=== PATIENT | female | born 1975 | race Caucasian/White ===

== ENCOUNTER 2016-08-13 08:19 | Emergency (ER) | payer BC ==
[~2016-08-13] VITALS: Ht 157.5 cm; Wt 65.7 kg
[~2016-08-13 08:19] MED LIST: ADAPALENE45 GM TP; CLARINEX5 MG PO; DAILY VALUE1 EACH PO; FLONASE ALLERG9.9 ML BOTH NARES; MAG-TAB SR84 MG PO; PROAIR HFA8.5 GM IH; ZYRTEC10 M3 PO
[2016-08-13 09:12] LABS: ADD MIUA? YES; BILIRUBIN NEGATIVE; BLOOD SMALL; COLOR STRAW ((YELLOW)); GLUCOSE (STRIP) NEGATIVE; KETONES NEGATIVE; LEUKOCYTES NEGATIVE; NITRITE NEGATIVE; PROTEIN (STRIP) NEGATIVE; SPECIFIC GRAVITY 1.005 (1.000-1.030); UROBILINOGEN 0.2 MG/DL (0.2-1.0)
[2016-08-13 09:17] LABS: BACTERIA NONE SEEN /HPF; EPITHELIAL CELLS 1+ /HPF; MUCUS TRACE /LPF; RED BLOOD CELLS 0-5 /HPF (0-5); UCUL ADDED? NO; WHITE BLOOD CELLS 0-5 /HPF (0-5)
[2016-08-13 09:26] LABS: HEMATOCRIT 44.5 % (36.0-46.0); MCH 30.7 PG (29.0-34.0); MCHC 33.3 G/DL (30.0-36.0); MCV 92.3 FL (83-99); MEAN PLAT.VOLUME 10.4 uM^3 (9.5-12.4); PLATELET COUNT 347 K/uL (156-360); RBC DIS.WIDTH-CV 13.2 % (11.8-14.6); RBC DIS.WIDTH-SD 45.2 % (39-53); RED BLOOD COUNT 4.82 M/uL (3.80-5.20); WHITE BLOOD COUNT 6.9 K/uL (4.1-10.2)
[2016-08-13 09:35] LABS: CHLORIDE 110 mEq/L (99-109); POTASSIUM 4.2 mEq/L (3.7-5.4); SODIUM 141 mEq/L (136-147)
[2016-08-13 09:36] LABS: GLUCOSE 85 mg/dL (70-99)
[2016-08-13 09:38] LABS: ANION GAP 11 MEQ/L (2-14)
[2016-08-13 09:40] LABS: GFR ESTIMATE (CALCULATED) > 59 mL/min/
[2016-08-13 09:41] LABS: UREA NITROGEN (BUN) 13 mg/dL (9-23)
[2016-08-13 10:00] LABS: QUANTITATIVE HCG < 4.0 MIU/ML
[2016-08-13] MEDS ORDERED: MECLIZINE HCL25 MG PO (10:32)
[2016-08-13 10:49] VITALS: BP 120/81
== END 2016-08-13 10:55 | disposition home or self-care (01) ==
LOC: EME 08:19
DX: R42 Dizziness and giddiness (principal); H53.8 Other visual disturbances; F17.200 Nicotine dependence, unspecified, uncomplicated
CPT/HCPCS: 70450; 71020; 80048; 81003; 84702; 85027; 93005; 99281; 99284

== ENCOUNTER 2016-10-11 05:36 | Day surgery (SDC) | payer BC ==
[~2016-10-11] VITALS: Ht 157.5 cm; Wt 54.4 kg
[~2016-10-11 05:36] MED LIST changes: +CHANTIX1 MG PO; +KLONOPIN1 MG PO; +MECLIZINE HCL25 MG PO; +OMEPRAZOLE40 M1 PO
[2016-10-11] MEDS ORDERED: COLACE100 MG PO (05:53)
[2016-10-11 06:28] VITALS: BP 121/82
[2016-10-11] MEDS ORDERED: IBUPROFEN800 MG PO (09:37)
[2016-10-11] MEDS ORDERED: ENDOCET 5-3251 EACH PO (09:37)
[2016-10-11 10:56] VITALS: BP 120/94
[2016-10-11 11:57] VITALS: BP 125/74
[2016-10-11 14:08] VITALS: BP 134/80
== END 2016-10-11 14:25 | disposition home or self-care (01) ==
LOC: SDC 05:36
DX: R10.2 Pelvic and perineal pain (principal); N80.0 Endometriosis of uterus; N80.2 Endometriosis of fallopian tube; N72 Inflammatory disease of cervix uteri; Z83.3 Family history of diabetes mellitus; Z87.891 Personal history of nicotine dependence
CPT/HCPCS: 88307; J0131; J1100; J1170; J1580; J1885; J2001; J2175; J2250; J2405; J2710; J2795; J3010; J3475; J7050

== ENCOUNTER 2017-04-29 15:02 | Emergency (ER) | payer BC ==
[~2017-04-29] VITALS: Ht 157.5 cm; Wt 65.0 kg
[~2017-04-29 15:02] MED LIST changes: +COLACE100 MG PO; +ENDOCET 5-3251 EACH PO; +IBUPROFEN800 MG PO
[2017-04-29 15:47] LABS: BASOPHIL (%) 0.7 % (0-1); BASOPHIL COUNT 0.1 K/uL (0-0.1); EOSINOPHIL (%) 1.6 % (0-5); EOSINOPHIL COUNT 0.1 K/uL (0-0.3); HEMATOCRIT 37.9 % (36.0-46.0); HEMOGLOBIN 13.2 G/DL (11.9-15.5); IMMATURE GRANULOCYTE (%) 0.4 % (0.0-0.7); LYMPHOCYTE (%) 37.1 % (15-42); LYMPHOCYTE COUNT 2.9 K/uL (1.0-2.8); MCHC 34.8 G/DL (30.0-36.0); MONOCYTE (%) 7.5 % (3-12); MONOCYTE COUNT 0.6 K/uL (0-0.8); NEUTROPHIL (%) 52.7 % (45-76); NEUTROPHIL COUNT 4.1 K/uL (1.8-6.4); PLATELET COUNT 351 K/uL (156-360); RBC DIS.WIDTH-CV 12.1 % (11.8-14.6); RBC DIS.WIDTH-SD 39.6 % (39-53); RED BLOOD COUNT 4.26 M/uL (3.80-5.20); WHITE BLOOD COUNT 7.7 K/uL (4.1-10.2)
[2017-04-29 15:54] LABS: D-DIMER ELISA < 150.00 ng/mLDDU (<230)
[2017-04-29 15:55] LABS: ALBUMIN 4.2 g/dL (3.2-4.8); CHLORIDE 107 mEq/L (99-109); POTASSIUM 3.6 mEq/L (3.7-5.4); SODIUM 140 mEq/L (136-147)
[2017-04-29 15:56] LABS: MAGNESIUM 2.2 mg/dL (1.3-2.7)
[2017-04-29 15:57] LABS: GLUCOSE 112 mg/dL (70-99); TOTAL PROTEIN 6.9 g/dL (6.4-8.3)
[2017-04-29 15:59] LABS: TOTAL BILIRUBIN 0.4 mg/dL (0.0-1.0)
[2017-04-29 16:01] LABS: ALKALINE PHOSPHATASE 57 IU/L (3-129); CREATININE 0.8 mg/dL (0.6-1.3); GFR ESTIMATE (CALCULATED) > 59 mL/min/
[2017-04-29 16:02] LABS: UREA NITROGEN (BUN) 15 mg/dL (9-23)
[2017-04-29 16:03] LABS: AST (GOT) 12 IU/L (2-34)
[2017-04-29 16:04] LABS: ALT (GPT) 7 IU/L (3-49)
[2017-04-29 16:12] LABS: QUANTITATIVE HCG < 4.0 MIU/ML
[2017-04-29 16:32] LABS: TROP-I INTERPRETATION NEGATIVE; TROPONIN-I < 0.01 ng/mL (0.0-0.30)
[2017-04-29 18:04] VITALS: BP 127/87
== END 2017-04-29 18:16 | disposition home or self-care (01) ==
LOC: EME 15:02
PROVIDERS: Emergency Medicine
DX: I49.3 Ventricular premature depolarization (principal); R00.2 Palpitations; E87.6 Hypokalemia; Z87.891 Personal history of nicotine dependence; Z90.49 Acquired absence of other specified parts of digestive tract; Z88.5 Allergy status to narcotic agent; Z88.2 Allergy status to sulfonamides; Z88.1 Allergy status to other antibiotic agents; Z88.6 Allergy status to analgesic agent
CPT/HCPCS: 71046; 80053; 83735; 84484; 84702; 85025; 85379; 93005; 99281; 99285; J7030